=== PATIENT | female | born 1930 ===

== ENCOUNTER → 2018-06-18 | Outpatient (CLI) | payer OTHER ==
[~2018-06-18] MED LIST: ALBU90OI INH; ASPI325 PO; ASPI81EC PO; Armour Thyroid120 MG PO; CEPH500 PO; CLON.1 PO; CLOP75 PO; Cardizem Cd180 MG PO; DIGO.125 PO; FURO40 PO; Hair, Skin & N1 EACH PO; LISI5 PO; METF500 PO; METPRE4DP PO; NEBI10 PO; THYR60 PO; UBID10 PO; VICODIN 5-3001 EACH PO
[2018-06-18 17:31] LABS: Appearance, Urine Cloudy (Clear); Bilirubin, Urine Neg (Neg); Blood, Urine 1+ (Neg); Color, Urine Yellow (P-Yellow); Glucose Qualitative, Urine Neg (Neg); Ketones, Urine 1+ (Neg); Leukocyte Esterase, Urine 3+ (Neg); Nitrite, Urine Neg (Neg); Protein, Urine 2+ (Neg); Urobilinogen, Urine 1+ (Normal); pH, Urine 6.5 (5.0-8.0)
[2018-06-18 17:46] LABS: Bacteria Many /hpf; Calcium Oxalate Crystals Few /hpf; Squamous Epithelial Cells Rare /hpf (Few); White Blood Cells, Urine TNTC /hpf (0-5)
== END ==
LOC: LAB SHORT 17:15 → LAB 17:15
PROVIDERS: Family Medicine
DX: R82.99 Other abnormal findings in urine (principal)
CPT/HCPCS: 81001; 87077; 87086; 87186

== ENCOUNTER → 2019-07-06 | Outpatient (CLI) | payer OTHER | END | disposition home or self-care (01) | LOC: LAB SHORT 14:04 → LAB EV 14:04 | DX: N39.0 Urinary tract infection, site not specified (principal) | CPT/HCPCS: 87077; 87086; 87186 ==

== ENCOUNTER 2019-10-25 06:27 | Day surgery (SDC) | payer OTHER ==
[~2019-10-25] VITALS: Ht 162.6 cm; Wt 63.0 kg
[~2019-10-25 06:27] MED LIST changes: +VITAMIN D33000 UNI1 PO
[2019-10-25] MEDS ORDERED: CLOP75 PO (10:27)
[2019-10-25] MEDS ORDERED: XARELTO2.5 MG PO (10:28)
--- NOTE | 2019-10-25 10:59 | NUR ---
LEFT GROIN SITE WITH OOZING NOTED. SITE SOFT NON TENDER TO PALPATION. CLEAR TEGADERM DRESSING REMOVED, KEVAN PAD REPLACED OVER SITE. VSS. PT TOLERATES PO FLUIDS WITH NO DIFFICULTIES. NADN. PT REMAINS IN SUPINE POSITION WITH REVERSE TRENDELENBERG. WILL CONTINUE TO MONITOR.
--- NOTE | 2019-10-25 11:51 | NUR ---
MANUAL PRESSURE HELD TO LEFT GROIN SITE FOR CONTINUED OOZING, BP ALSO ELEVATED. PT MEDICATED WITH HYDRALAZINE [address] MORRIS. SITE REMAINS SOFT NON TENDER. PT DENIES PAIN. WILL CONTINUE TO MONITOR.
--- NOTE | 2019-10-25 12:30 | NUR ---
PT HOB RAISED TO 90 DEGREES. PT PROVIDED WITH MEAL TRAY. LEFT GROIN SITE REMAINS STABLE. SOFT NON TENDER, PT DENIES PAIN. NO ACTIVE OOZING NOTED AT THIS TIME. VSS. FRIEND CALLED FOR RIDE HOME. NADN. CALL LIGHT IN REACH.
--- NOTE | 2019-10-25 13:50 | NUR ---
PT VERBALIZED UNDERSTANDING OF D/C INSTRUCTIONS. PAPERWORK PROVIDED IN [facility] FOLDER. LEFT GROIN SITE STABLE. KEVAN AND CLEAR TEGADERM INTACT. SITE REMAINS SOFT NON TENDER WITH NO ACTIVE BLEEDING OR OOZING NOTED. PT FRIEND ARRIVES TO DRIVE HER HOME. PT TO RESTROOM, UNMEASURED VOID. ASSISTED WITH GETTING DRESSED. TAKEN OUT TO PRIVATE VEHICLE VIA W/C. NADN AT TIME OF DISCHARGE. ENCOURAGED TO CALL PROVIDER WITH ANY QUESTIONS OR CONCERNS.
== END 2019-10-25 12:50 | disposition home or self-care (01) ==
LOC: MHTC 06:27
DX: I70.203 Unspecified atherosclerosis of native arteries of extremities, bilateral legs (principal); E11.51 Type 2 diabetes mellitus with diabetic peripheral angiopathy without gangrene; I11.0 Hypertensive heart disease with heart failure; I50.9 Heart failure, unspecified; E78.5 Hyperlipidemia, unspecified; E03.9 Hypothyroidism, unspecified; I48.91 Unspecified atrial fibrillation; Z87.891 Personal history of nicotine dependence; Z88.4 Allergy status to anesthetic agent; Z88.8 Allergy status to other drugs, medicaments and biological substances; Z79.899 Other long term (current) drug therapy; Z79.84 Long term (current) use of oral hypoglycemic drugs
CPT/HCPCS: 37227; 75625; 75716; 75774; 85347; 99152; 99153; C1714; C1725; C1760; C1769; C1874; C1884; C1887; C1894; C2623; J0360; J1644; J2250; J3010; J7030; Q9967

== ENCOUNTER 2019-11-07 09:03 | Day surgery (SDC) | payer OTHER ==
[~2019-11-07] VITALS: Ht 162.6 cm; Wt 62.3 kg
[~2019-11-07 09:03] MED LIST changes: +XARELTO2.5 MG PO
[2019-11-07 09:24] LABS: BASOPHILS ABSOLUTE AUTO 0.07 K/mm3 (0.00-0.23); BASOPHILS PERCENT AUTO 1 % (0-2); EOSINOPHILS PERCENT AUTO 8 % (0-6); Hematocrit 35.2 % (33.0-51.0); Hemoglobin 11.5 g/dL (11.5-16.0); IMMATURE GRAN ABSOLUTE AUTO 0.04 K/mm3 (0.00-0.10); IMMATURE GRAN PERCENT AUTO 1 % (0-1); LYMPHOCYTES ABSOLUTE AUTO 0.82 K/mm3 (0.84-5.20); LYMPHOCYTES PERCENT AUTO 9 % (21-46); MONOCYTES ABSOLUTE AUTO 0.48 K/mm3 (0.16-1.47); MONOCYTES PERCENT AUTO 6 % (4-13); Mean Corpuscular HGB 29.5 pg (26.0-34.0); Mean Corpuscular HGB Conc 32.7 g/dL (31.5-36.5); Mean Corpuscular Volume 90 fL (80-100); Mean Platelet Volume 10.6 fL (9.1-12.4); NEUTROPHILS PERCENT AUTO 76 % (41-73); Platelet Count 200 K/mm3 (150-400); RDW Coefficient Variation 12.8 % (11.7-14.2); White Blood Cell Count 8.71 K/mm3 (4.00-11.30)
[2019-11-07 09:40] LABS: International Normalized Ratio 1.07; Prothrombin Time Results 11.4 Sec (9.7-11.5)
[2019-11-07 09:45] LABS: Bun/Creatinine Ratio 16.2 (12.0-20.0); Calcium, Blood 9.2 mg/dL (8.5-10.1); Creatinine, Blood 1.11 mg/dL (0.40-1.00); Potassium, Blood 4.1 mmol/L (3.5-5.5)
[2019-11-07] MEDS ORDERED: LASIX40 MG PO (10:15)
--- NOTE | 2019-11-07 14:00 | NUR ---
Report from Laney Alcantara RN- Pt drowsy pt is sleeping post angiogram. Right foot with dp and PT sites with dressing intact and dry. Pt in A-fib vss. IV with NS 850 ester. Pt with chronic pain on right hip.
--- NOTE | 2019-11-07 14:52 | NUR ---
SBAR TO Randee Marion RN pt is sleeping stable dressing PT & DP dry and intact. Pt arouses to touch. Friends notified that patient will most likley be discharged after 4:30 due to drowsiness. VSS. Iv infusing at 100cc.
--- NOTE | 2019-11-07 16:13 | NUR ---
PT REPOSITIONED ON GURNEY FOR COMFORT. PROVIDED WITH SNACK AND DRINK, TOLERATES WITH NO DIFFICULTIES. C/O 4/10 RIGHT HIP/LEG PAIN, PT STATES THAT THIS IS A TOLERABLE PAIN LEVEL FOR HER AT THIS TIME. BEAR HUGGER PROVIDING WARM AIR FOR COMFORT. NO ACUTE DISTRESS AT THIS TIME. VSS. WILL CONTINUE TO MONITOR RIGHT PEDAL/ POST TIBIAL SITES.
--- NOTE | 2019-11-07 16:50 | NUR ---
PT AMBULATES WITH VERY UNSTEADY GAIT TO RESTROOM WITH 1 PERSON ASSIST AND FWW. UNMEASURED URINE VOID. PT RIGHT LEG FROM FOOT TO [place] REGION IS RED, WARM, AND SWOLLEN TO TOUCH. PT APPEARS TO TOLERATE WEIGHT BEARING ON RIGHT LEG. ASSISTED WITH GETTING DRESSED. PT'S NEIGHBORS ARRIVE TO DRIVE PT HOME. DISCHARGE INSTRUCTIONS REVIEWED WITH THEM, VERBALIZED UNDERSTANDING.
--- NOTE | 2019-11-07 17:30 | NUR ---
IV REMOVED FROM RAC WITH CATH INTACT, PRESSURE DRESSING APPLIED. DISCHARGE PAPERWORK REVIEWED WITH PT, SHE VERBALIZED UNDERSTANDING, PAPERWORK PROVIDED IN FOLDER. PT WITH SBA INTO W/C, NEIGHBOR ROSA HERE TO DRIVE PT HOME. PT DRESSED WITH ASSISTANCE. ALL PERSONAL BELONGINGS SENT WITH HER AT DISPO. ENCOURAGED TO FOLLOW UP WITH PROVIDER SCHEDULED AND TO RESUME ALL PREVIOUS MEDICATIONS. NO ACUTE DISTRESS NOTED, PT APPEARS TO STAND STEADY ON HER FEET AND IS AOX3. RIGHT PEDAL/POST TIB ACCESS SITES APPEAR SOFT NON TENDER WITH NO ACTIVE BLEEDING, OOZING, OR PAIN AT TIME OF DISCHARGE.
== END 2019-11-07 17:30 | disposition home or self-care (01) ==
LOC: MHTC 09:03
PROVIDERS: Radiology Diagnostic Radiology
DX: I70.211 Atherosclerosis of native arteries of extremities with intermittent claudication, right leg (principal); R53.83 Other fatigue; E03.9 Hypothyroidism, unspecified; I13.0 Hypertensive heart and chronic kidney disease with heart failure and stage 1 through stage 4 chronic kidney disease, or unspecified chronic kidney disease; N18.3 Chronic kidney disease, stage 3 (moderate); I48.0 Paroxysmal atrial fibrillation; I50.9 Heart failure, unspecified; E78.5 Hyperlipidemia, unspecified; Z87.891 Personal history of nicotine dependence; Z88.8 Allergy status to other drugs, medicaments and biological substances; Z88.4 Allergy status to anesthetic agent; Z79.899 Other long term (current) drug therapy
CPT/HCPCS: 36415; 37226; 37228; 37232; 75710; 75774; 76937; 80048; 85025; 85347; 85610; 99152; 99153; C1725; C1769; C1874; C1887; C1894; C2623; J0360; J1200; J1644; J2060; J2250; J3010; J7030; Q9967

== ENCOUNTER → 2020-02-08 | Outpatient (CLI) | payer OTHER ==
[~2020-02-08] MED LIST changes: +CHLORELLA PO; +LASIX40 MG PO; +Vitamin C100 M1 PO
== END ==
LOC: LAB EV 18:01 → LAB SHORT 18:01
DX: N39.0 Urinary tract infection, site not specified (principal)
CPT/HCPCS: 87077; 87086; 87186

== ENCOUNTER 2020-02-28 05:54 | Inpatient (IN) | payer OTHER ==
[~2020-02-28] VITALS: Ht 167.6 cm; Wt 66.4 kg
--- NOTE | 2020-02-28 07:28 | NUR ---
INTO [facility] VIA WC. PT ABLE TO TRANSFER WITH MINIMAL ASSISTANCE. History, Chart, Medications and Allergies reviewed before start of procedure.Patient confirms NPO status and agrees with scheduled surgery. Patient reports completing Chlorhexadine shower X2 prior to admission to hospital.Surgical site prepped with 2% Chlorhexidine cloth wipe. Lungs clear T/O to Auscultation.PT PERSONAL TRAVEL BAG TAKEN TO PACU.
--- NOTE | 2020-02-28 08:56 | NUR ---
02/28/20 0856 Candis Dominguez IMPLANT PLACED IN RIGHT HIP (NOT IN COMPUTER SYSTEM): REF:[id number], LOT:[id number], EXP:03/07/24, DESCRIPTION: ACETABULAR SHELL
--- NOTE | 2020-02-28 11:58 | NUR ---
PT VOMITTED 100CC EMESIS, MEDICATED W/ PHENERGAN 12.5MG IV, MONITOR.
--- NOTE | 2020-02-28 17:43 | NUR ---
SUMMARY VSS, OOB TO CHAIR FOR DINNER, PT AMBULATED DOWN THE PAGAN W/ AUTO BODY CUSTOMIZER, TOLERATED WELL, DENIES ANY PAIN, DSG C/D/I, REPORTS NAUSEA IS BETTER, EATING REG ADA DIET, TOLERATING WELL, USED BSC TO VOID X2, NO ACUTE CHANGES THSI SHIFT.
--- NOTE | 2020-02-29 04:32 | NUR ---
SHIFT SUMMARY POD 1 RIGHT DANIEL, ROX CDI. POLAR PACK, SCDS, AND TEDS IN PLACE. PAIN MANAGED WITH PO MEDICATION, TORADOL, ICE, AND REPOSTIONING. EDU/ENC I.S. USE AND TURN/COUGH/DB; PT ABLE TO DEMONSTRATE. CORINNA REGULAR DIET, DENIES N/V. OOB WITH FWW/GB/SBA, AMB TO BATHROOM. PLAN TO WORK WITH THERAPY TODAY. PT IS CURRENTLY RESTING IN BED WITH CALL LIGHT IN REACH. WILL CONT TO MONITOR AND GIVE REPORT TO ONCOMING RN.
[2020-02-29 04:53] LABS: BASOPHILS ABSOLUTE AUTO 0.01 K/mm3 (0.00-0.23); BASOPHILS PERCENT AUTO 0 % (0-2); EOSINOPHILS PERCENT AUTO 0 % (0-6); Hematocrit 28.4 % (33.0-51.0); IMMATURE GRAN ABSOLUTE AUTO 0.05 K/mm3 (0.00-0.10); IMMATURE GRAN PERCENT AUTO 0 % (0-1); LYMPHOCYTES ABSOLUTE AUTO 0.71 K/mm3 (0.84-5.20); LYMPHOCYTES PERCENT AUTO 6 % (21-46); MONOCYTES ABSOLUTE AUTO 0.98 K/mm3 (0.16-1.47); MONOCYTES PERCENT AUTO 9 % (4-13); Mean Corpuscular HGB 28.7 pg (26.0-34.0); Mean Corpuscular HGB Conc 31.7 g/dL (31.5-36.5); Mean Corpuscular Volume 90 fL (80-100); Mean Platelet Volume 11.9 fL (9.1-12.4); NEUTROPHILS ABSOLUTE AUTO 9.82 K/mm3 (1.96-9.15); NEUTROPHILS PERCENT AUTO 85 % (41-73); Platelet Count 115 K/mm3 (150-400); RDW Coefficient Variation 13.7 % (11.7-14.2); RDW Standard Deviation 45.5 fL (35.1-46.3); Red Blood Cell Count 3.14 M/mm3 (3.80-5.20); White Blood Cell Count 11.57 K/mm3 (4.00-11.30)
[2020-02-29 05:06] LABS: Bun/Creatinine Ratio 20.9 (12.0-20.0); Calcium, Blood 8.3 mg/dL (8.5-10.1); Creatinine, Blood 1.48 mg/dL (0.40-1.00); Potassium, Blood 4.8 mmol/L (3.5-5.5)
--- NOTE | 2020-02-29 17:20 | NUR ---
SUMMARY PT DENIES HAVING ANY PAIN AT REST AND ONLY SLIGHT PAIN WITH AMBULATION, PT HAS DECLINED PAIN MEDS. PT IS ANTICIPATING DISCHARGE TO SNF. PT 1 PERSON ASSIST TO AMBULATE, USES CALL LIGHT APPROPRIATELY
--- NOTE | 2020-03-01 05:08 | NUR ---
SHIFT SUMMARY. POD2 RIGHT SHAYLA. WEIGHT BEARING TOLERATED. PATIENT IS A ONE PERSON ASSIST. PATIENT RESTING THIS AM IN BED. PATIENT BECAME CONFUSED IN THE LATE EVENING AFTER SHIFT CHANGE AND THROUGHOUT SHIFT. DOES NOT USE CALL LIGHT FOR ASSISTANCE. BED ALARM SOUNDS WHEN PATIENT ATTEMPTS TO GET OUT OF BED TO USE THE BEDSIDE COMMODE TO VOID. PATIENT IS DETERMINED TO DO TASKS INDEPENDENTLY. PATIENT REFUSES SOME MEDICATIONS AND VITAL SIGNS. PATIENT APPEARS TO BE ANXIOUS AND FRUSTERATED. IS OFTEN REDIRECTED. SURGICAL DRESSING ARE C/D/I. BED ALARM ON AT ALL TIMES FOR SAFETY MEASURES. CALL LIGHT IN REACH.
[2020-03-01] MEDS ORDERED: ACET500 PO (14:43)
[2020-03-01] MEDS ORDERED: ASPI81CH PO (14:44)
--- NOTE | 2020-03-01 16:15 | NUR ---
EMESIS IN THE HOUR PRIOR TO DC TO SNF, PT VOMITED > 1L OF FLUID. WAS SITTING ON BSC, PASSING GAS AND SMALL "DEER LIKE" BM. MD NOTIFIED AND DC POST PONED.
--- NOTE | 2020-03-01 17:56 | NUR ---
SHIFT SUMMARY PT WAS ALERT AND ORIENTED UNTIL APPROX 1700 WHEN STARTING TO BECOME FORGETFUL. PT AMBULATES WELL WITH THERAPY BUT REFUSES TO USE WALKER WHEN TRANSFERRING TO BSC. DEVELOPED N/V THIS AFTERNOON SO DC POST PONED.
--- NOTE | 2020-03-01 20:00 | NUR ---
PATIENT'S BLOOD PRESSURE IS 202/97 @1940. PRIOR BP WAS 198/74 @1906. PATIENT REFUSED HER 1700 COREG. AFTER REVIEWING THE CURRENT BLOOD PRESSURE WITH PATIENT SHE WAS WILLING TO TAKE ALL OF HER CARDIAC MEDICATIONS INCLUDING THE COREG FROM 1700.
--- NOTE | 2020-03-01 20:09 | NUR ---
PATIENT IS HAVING NAUSEA AND VOMITING. PLAN TO NOTIFY PHYSICIAN RELATED TO IV STATUS, NAUSEA MEDICATIONS, AND ELEVATED BP WITH PRIOR MEDICATION IN EMESIS.
[2020-03-01 22:20] LABS: BASOPHILS ABSOLUTE AUTO 0.02 K/mm3 (0.00-0.23); BASOPHILS PERCENT AUTO 0 % (0-2); EOSINOPHILS PERCENT AUTO 1 % (0-6); Hematocrit 31.6 % (33.0-51.0); Hemoglobin 10.3 g/dL (11.5-16.0); IMMATURE GRAN ABSOLUTE AUTO 0.06 K/mm3 (0.00-0.10); IMMATURE GRAN PERCENT AUTO 1 % (0-1); LYMPHOCYTES ABSOLUTE AUTO 0.82 K/mm3 (0.84-5.20); LYMPHOCYTES PERCENT AUTO 8 % (21-46); MONOCYTES ABSOLUTE AUTO 0.96 K/mm3 (0.16-1.47); MONOCYTES PERCENT AUTO 9 % (4-13); Mean Corpuscular HGB 28.6 pg (26.0-34.0); Mean Corpuscular HGB Conc 32.6 g/dL (31.5-36.5); Mean Corpuscular Volume 88 fL (80-100); Mean Platelet Volume 12.2 fL (9.1-12.4); NEUTROPHILS ABSOLUTE AUTO 8.81 K/mm3 (1.96-9.15); NEUTROPHILS PERCENT AUTO 82 % (41-73); Platelet Count 150 K/mm3 (150-400); RDW Coefficient Variation 13.6 % (11.7-14.2); RDW Standard Deviation 43.7 fL (35.1-46.3); White Blood Cell Count 10.77 K/mm3 (4.00-11.30)
[2020-03-01 22:39] LABS: Albumin, Blood 3.1 g/dL (3.4-5.0); Albumin/Globulin Ratio 0.9 (0.8-1.8); Bilirubin, Total 0.9 mg/dL (0.1-1.0); Bun/Creatinine Ratio 24.5 (12.0-20.0); Calcium, Blood 8.9 mg/dL (8.5-10.1); Creatinine, Blood 1.39 mg/dL (0.40-1.00); Globulin, Blood 3.6 g/dL (2.2-4.0); Potassium, Blood 3.3 mmol/L (3.5-5.5); Total Protein, Blood 6.7 g/dL (6.4-8.2)
--- NOTE | 2020-03-02 01:52 | NUR ---
NOTIFIED DR AGUIRRE OF CHANGES WITH PATIENT @2014. ADDED HOSPITALIST CONSULT FOR THE CURRENT ISSUES OF NAUSEA AND VOMITING, HTN, AND THE INABILITY TO TREAT DUE TO VOMITING. NEW IV PLACED AND REGLAN GIVEN. PT UP TO BSC AND HAD LG FORMED BM @5584. aBD XRAY AND ABD CT. HYDRALIZINE FOR HTN GIVEN. @ 0030 NG SALEM SUMP TUBE WAS PLACED IN LT NARES. PATIENT DID NOT TOLERATE THE PROCEDURE. PATIENT DEMANDED NG BE REMOVED AFTER ONLY 150CC AND 20 MINUTES LATER. THE NG WAS REMOVED AT PATIENT REQUEST. pT FELL ASLEEP AFTER PHENERGAN 12.5MG IV AND LABETOLOL 10MG GIVEN FOR CONTINUED NAUSEA AND HTN. @0209 BP 161/89. WILL CONTINUE TO MEDICATE FOR HTN.
[2020-03-02 08:20] LABS: BASOPHILS ABSOLUTE AUTO 0.01 K/mm3 (0.00-0.23); BASOPHILS PERCENT AUTO 0 % (0-2); EOSINOPHILS PERCENT AUTO 0 % (0-6); Hematocrit 27.7 % (33.0-51.0); Hemoglobin 8.8 g/dL (11.5-16.0); IMMATURE GRAN ABSOLUTE AUTO 0.09 K/mm3 (0.00-0.10); IMMATURE GRAN PERCENT AUTO 1 % (0-1); LYMPHOCYTES ABSOLUTE AUTO 0.69 K/mm3 (0.84-5.20); LYMPHOCYTES PERCENT AUTO 7 % (21-46); MONOCYTES ABSOLUTE AUTO 0.74 K/mm3 (0.16-1.47); MONOCYTES PERCENT AUTO 8 % (4-13); Mean Corpuscular HGB 28.5 pg (26.0-34.0); Mean Corpuscular HGB Conc 31.8 g/dL (31.5-36.5); Mean Corpuscular Volume 90 fL (80-100); NEUTROPHILS ABSOLUTE AUTO 7.81 K/mm3 (1.96-9.15); NEUTROPHILS PERCENT AUTO 84 % (41-73); Platelet Count 128 K/mm3 (150-400); RDW Coefficient Variation 13.9 % (11.7-14.2); RDW Standard Deviation 45.3 fL (35.1-46.3); Red Blood Cell Count 3.09 M/mm3 (3.80-5.20); White Blood Cell Count 9.34 K/mm3 (4.00-11.30)
[2020-03-02 08:36] LABS: Albumin, Blood 2.6 g/dL (3.4-5.0); Albumin/Globulin Ratio 0.8 (0.8-1.8); Bilirubin, Total 0.8 mg/dL (0.1-1.0); Bun/Creatinine Ratio 22.9 (12.0-20.0); Calcium, Blood 8.4 mg/dL (8.5-10.1); Creatinine, Blood 1.4 mg/dL (0.40-1.00); Globulin, Blood 3.1 g/dL (2.2-4.0); Potassium, Blood 4.1 mmol/L (3.5-5.5); Total Protein, Blood 5.7 g/dL (6.4-8.2)
--- NOTE | 2020-03-02 15:02 | NUR ---
0707 sleeping pt awakens to verbal stimuli states feeling better and no pain or nause just feels very sleepy
--- NOTE | 2020-03-02 18:02 | NUR ---
SUMMARY PT STATES SHE IS FEELING MUCH BETTER, DENIES PAIN, NAUSEA OR VOMITING. TAKING SMALL AMOUNTS OF CLEAR LIQUIDS. PT IS 1 PERSON ASSIST OOB
[2020-03-03 04:45] LABS: BASOPHILS ABSOLUTE AUTO 0.03 K/mm3 (0.00-0.23); BASOPHILS PERCENT AUTO 0 % (0-2); EOSINOPHILS ABSOLUTE AUTO 0.41 K/mm3 (0.00-0.68); EOSINOPHILS PERCENT AUTO 6 % (0-6); Hemoglobin 8.5 g/dL (11.5-16.0); IMMATURE GRAN ABSOLUTE AUTO 0.05 K/mm3 (0.00-0.10); IMMATURE GRAN PERCENT AUTO 1 % (0-1); LYMPHOCYTES ABSOLUTE AUTO 1.51 K/mm3 (0.84-5.20); LYMPHOCYTES PERCENT AUTO 21 % (21-46); MONOCYTES PERCENT AUTO 13 % (4-13); Mean Corpuscular HGB 28.8 pg (26.0-34.0); Mean Corpuscular HGB Conc 31.5 g/dL (31.5-36.5); Mean Corpuscular Volume 92 fL (80-100); Mean Platelet Volume 11.8 fL (9.1-12.4); NEUTROPHILS ABSOLUTE AUTO 4.32 K/mm3 (1.96-9.15); NEUTROPHILS PERCENT AUTO 60 % (41-73); Platelet Count 128 K/mm3 (150-400); RDW Standard Deviation 47.3 fL (35.1-46.3); Red Blood Cell Count 2.95 M/mm3 (3.80-5.20); White Blood Cell Count 7.22 K/mm3 (4.00-11.30)
[2020-03-03 05:06] LABS: Bun/Creatinine Ratio 21.8 (12.0-20.0); Calcium, Blood 7.9 mg/dL (8.5-10.1); Creatinine, Blood 1.24 mg/dL (0.40-1.00); Potassium, Blood 3.5 mmol/L (3.5-5.5)
--- NOTE | 2020-03-03 06:09 | NUR ---
SHIFT SUMMARY POD 4 R TOTAL HIP PT AMBULATES WELL ON LEG, MINIMAL PAIN DURING SHIFT, MEDICATED PER EMAR. UP TO BSC, 1 BM, FORMED. VOIDING. TOLERATING CLEAR LIQUIDS WELL. REPORTS STOMACH FEELING MUCH BETTER THAN IT DID. DENIES NAUSEA, NO EMESIS. HAS BEEN RESTING IN BED T/O SHIFT, PT STATED SHE GOT A GOOD NIGHT SLEEP. PLAN FOR DR TEMPLETON TO SEE IN THE AM FOR CONSULT.
--- NOTE | 2020-03-03 12:57 | NUR ---
REPORT CALLED TO CARSON AT [facility] AT 1257.
--- NOTE | 2020-03-03 14:22 | NUR ---
DISCHARGE TO SNF REPORT CALLED TO CARSON AT [facility] PRIOR TO PT DISCHARGE. PT LEFT VIA W/C TRANSPORT AT APPROXIMATELY 1315.
== END 2020-03-03 13:15 | DRG 470 ==
LOC: ORSCMMR 05:54 → ORD 07:30 → SURS 10:36 → ORSCMMR 03-01 21:13 → SURS 03-01 21:14
PROVIDERS: Internal Medicine; Nurse Practitioner Acute Care; Orthopaedic Surgery; ADMIT Internal Medicine
PROC: 0SR90JZ Replacement of Right Hip Joint with Synthetic Substitute, Open Approach (ICD-10-PCS; principal; 2020-02-28 07:30)
DX: M16.11 Unilateral primary osteoarthritis, right hip (principal); K56.609 Unspecified intestinal obstruction, unspecified as to partial versus complete obstruction; D62 Acute posthemorrhagic anemia; N17.9 Acute kidney failure, unspecified; I48.20 Chronic atrial fibrillation, unspecified; I13.0 Hypertensive heart and chronic kidney disease with heart failure and stage 1 through stage 4 chronic kidney disease, or unspecified chronic kidney disease; I50.32 Chronic diastolic (congestive) heart failure; R11.2 Nausea with vomiting, unspecified; K59.00 Constipation, unspecified; E11.22 Type 2 diabetes mellitus with diabetic chronic kidney disease; N18.3 Chronic kidney disease, stage 3 (moderate); Z79.4 Long term (current) use of insulin; E03.9 Hypothyroidism, unspecified; I34.0 Nonrheumatic mitral (valve) insufficiency; K81.9 Cholecystitis, unspecified; E87.6 Hypokalemia
CPT/HCPCS: 36415; 72170; 74018; 74176; 76705; 80048; 80053; 82947; 85025; 86850; 86900; 86901; 88300; 96361; 96374; 96375; 96376; 97110; 97116; 97162; 97165; 97530; C1776; G0378; J0171; J0360; J0690; J0735; J1100; J1650; J1815; J1885; J2270; J2405; J2550; J2704; J2765; J2795; J3010; J3480; J7030; J7120

== ENCOUNTER 2020-08-10 17:18 | Emergency (ER) | payer OTHER ==
[~2020-08-10] VITALS: Ht 167.6 cm; Wt 63.5 kg
[~2020-08-10 17:18] MED LIST changes: +ACET500 PO; +ASPI81CH PO
[2020-08-10 18:49] LABS: BASOPHILS ABSOLUTE AUTO 0.04 K/mm3 (0.00-0.23); BASOPHILS PERCENT AUTO 1 % (0-2); EOSINOPHILS PERCENT AUTO 6 % (0-6); Hematocrit 39.3 % (33.0-51.0); Hemoglobin 12.1 g/dL (11.5-16.0); IMMATURE GRAN ABSOLUTE AUTO 0.01 K/mm3 (0.00-0.10); IMMATURE GRAN PERCENT AUTO 0 % (0-1); LYMPHOCYTES ABSOLUTE AUTO 1.33 K/mm3 (0.84-5.20); LYMPHOCYTES PERCENT AUTO 20 % (21-46); MONOCYTES ABSOLUTE AUTO 0.73 K/mm3 (0.16-1.47); MONOCYTES PERCENT AUTO 11 % (4-13); Mean Corpuscular HGB 26.5 pg (26.0-34.0); Mean Corpuscular HGB Conc 30.8 g/dL (31.5-36.5); Mean Corpuscular Volume 86 fL (80-100); Mean Platelet Volume 11.6 fL (9.1-12.4); NEUTROPHILS ABSOLUTE AUTO 4.21 K/mm3 (1.96-9.15); NEUTROPHILS PERCENT AUTO 63 % (41-73); Platelet Count 168 K/mm3 (150-400); RDW Coefficient Variation 15.3 % (11.7-14.2); RDW Standard Deviation 47.9 fL (35.1-46.3); Red Blood Cell Count 4.57 M/mm3 (3.80-5.20); White Blood Cell Count 6.72 K/mm3 (4.00-11.30)
[2020-08-10 19:12] LABS: Albumin, Blood 3.6 g/dL (3.4-5.0); Bilirubin, Total 0.8 mg/dL (0.1-1.0); Bun/Creatinine Ratio 17.2 (12.0-20.0); Calcium, Blood 9.2 mg/dL (8.5-10.1); Creatinine, Blood 0.99 mg/dL (0.40-1.00); Globulin, Blood 3.6 g/dL (2.2-4.0); Potassium, Blood 3.7 mmol/L (3.5-5.5); Total Protein, Blood 7.2 g/dL (6.4-8.2); Troponin I 0.028 ng/mL (0.000-0.040)
== END 2020-08-10 21:27 | disposition home or self-care (01) ==
LOC: ER 17:18
PROVIDERS: Emergency Medicine
DX: I11.0 Hypertensive heart disease with heart failure (principal); I50.9 Heart failure, unspecified; E11.9 Type 2 diabetes mellitus without complications; I48.91 Unspecified atrial fibrillation; Z79.899 Other long term (current) drug therapy; Z88.8 Allergy status to other drugs, medicaments and biological substances; Z88.4 Allergy status to anesthetic agent; Z79.84 Long term (current) use of oral hypoglycemic drugs; Z79.82 Long term (current) use of aspirin
CPT/HCPCS: 71045; 80053; 83880; 84145; 84484; 85025; 93005; 93010; 96374; 99285-25; J1940

== ENCOUNTER → 2020-08-20 | Outpatient (CLI) | payer OTHER | END | disposition home or self-care (01) | LOC: LAB EV 16:50 → LAB SHORT 16:50 | DX: N39.0 Urinary tract infection, site not specified (principal) | CPT/HCPCS: 87077; 87086; 87186 ==

== ENCOUNTER → 2020-09-19 | Outpatient (CLI) | payer OTHER | LOC: LAB SHORT 14:29 | DX: N39.0 Urinary tract infection, site not specified (principal) | CPT/HCPCS: 87086 ==